=== PATIENT | female | born 1970 | race Two or more races ===

== ENCOUNTER 2022-07-21 10:14 | Emergency (ER) | payer MEDICAID ==
[~2022-07-21] VITALS: Ht 162.6 cm; Wt 68.9 kg
[2022-07-21 10:34] VITALS: BP 128/80
--- NOTE | 2022-07-21 10:55 | NUR ---
PAtient [id number] able to express her concerns, VSS, no signs [email or web address] distress.
[2022-07-21] MEDS ORDERED: ALBU18HF2 INH (11:57)
== END 2022-07-21 12:05 | disposition home or self-care (01) ==
LOC: ER 10:36
DX: R05.9 Cough, unspecified (principal); Z88.0 Allergy status to penicillin
CPT/HCPCS: 71045-TC